=== PATIENT | male | born 1950 | race Caucasian/White ===

== ENCOUNTER 2018-09-04 08:18 | Day surgery (SDC) | payer MEDICARE, OTHER, SELFPAY ==
--- NOTE | 2018-09-04 | PATH_ITS ---
[facility] Accession Number: [id number] . 01 Material submitted: . POLYP AT 60CM . 02 Diagnosis: Colon, Polyp at 60 cm, Biopsy: Tubular adenoma. MRV/09/08/2018 . 02 Electronically signed: . Hilaria Prasad MD, Pathologist NPI- [id number] . 01 Gross description: . Received one formalin-filled container labeled with the patient's name and labeled polyp at 60 cm. The specimen consists of two 0.2-0.3 cm portions of tissue, entirely submitted in one cassette. ([id number]) /FRR . 02 Pathologist provided ICD-10: D12.6 . 02 CPT . 085852 Performed at: 01 [facility] [address] [id number] MD Bereket Carlos MD Phone: [phone] Performed at: 02 [facility] [address] [place], [place] [id number] MD Hilaria Prasad MD Phone: [phone]
[2018-09-04 08:36] VITALS: BP 155/87; PULSE 93; RESP 18; TEMP 36.9; O2SAT 97; BMI 23.6
[2018-09-04] MEDS: SODIUM CHLORIDE 0.9% 1,000 ML 200 ML IV (08:48)
--- NOTE | 2018-09-04 09:52 | P.HP_ITS ---
History of Present Illness Date Patient Seen: 09/04/18 Time Patient Seen: 09:43 Chief complaint: [id number] SCREENING COLONOSCOPY Narrative: Patient here for screening exam. Last exam 6 or 7 years ago. He had polyps removed at that time. Patient History Medical History Healthy adult male (Acute) Social History household members: spouse Family & Social History Social History: household members spouse Meds Allergies Allergy/AdvReac Type Severity Reaction Status Date / Time No Known Drug Allergies Allergy Verified 09/04/18 08:34 Review of Systems Review of Systems All systems reviewed & are unremarkable except as noted in HPI and below Exam Vital Signs (past 8 hours): - 09/04/18 08:36 Temperature 98.5 F Pulse Rate 93 H Respiratory Rate 18 Blood Pressure 155/87 H Pulse Oximetry 97 Oxygen Delivery Method Room Air Narrative Exam Narrative: No apparent distress. Lungs are clear to auscultation. Heart regular rate and rhythm without murmur gallop. Abdomen is soft nontender w ithout mass. Alert and oriented x3. Assessment & Plan Assessment & Plan narrative: Patient for screening colonoscopy. I have discussed the procedure and the rationale with the patient including risks of bleeding, perforation which would necessitate a major operation, failure to find remove all lesions and the potential to tattoo. They appeared to understand and wished to proceed.
--- NOTE | 2018-09-04 09:52 | PM.PREOP ---
Pre-operative Note Interval Note History & Physical reviewed/Exam performed by Physician: Yes Changes to H&P: No ASA Class (for procedural sedation): I
[2018-09-04] MEDS: fentaNYL 250 MCG/5 ML INJ IV (09:54)
[2018-09-04] MEDS: MIDAZOLAM 5 MG/5 ML VIAL IV (09:55)
--- NOTE | 2018-09-04 10:23 | P.OP.ENDO_ITS ---
Operative Date/Time/Diagnoses Date of procedure: 09/04/18 Time of procedure: 10:17 Pre-op diagnosis: Screening exam. Last exam 6 or 7 years ago. History of polyps. Post-op diagnosis: same (Two small polyps. Sigmoid diverticulosis) Procedure & Clinicians Study performed: Colonoscopy with cold biopsy Same procedure as scheduled: Yes Indications: Screening. History of polyps. Surgeon: Kai Pineda Procedure Notes SCOAP/Timeout: Performed Procedure in detail: The patient was placed in the left lateral decubitus position and underwent IV sedation directed by the surgeon consisting of fentanyl and Versed. Digital exam was remarkable for a somewhat narrowed anus. I applied lidocaine ointment to the area. I could not feel his prostate well.. The scope was inserted and advanced through the rectum into the sigmoid, descending, transverse, and ascending colon. I noted sigmoid diverticulosis. No other lesions were seen.. The cecum was reached identified by the ileocecal valve and the appendiceal opening. The scope was gradually brought out. Two Polyps were found at 50 and 60 cm from the anal verge. These are placed in the same container.. The scope ultimately was retroflexed in the rectum. The a ppearance was normal. The scope was removed and the patient tolerated the procedure well. The prep was excellent. Scope withdrawal time: Almost 8.5 min Sedation minutes: 23 Findings: diverticulosis (Sigmoid) and polyp (Two tiny polyps near 50 and 60 cm) Specimen(s): other (Polyps) Complications: none Recommendations: Colonscopy in 5 years Follow up: as needed Disposition: PACU
[2018-09-04 10:24] VITALS: BP 131/75; PULSE 79; RESP 13; TEMP 36.7; O2SAT 16
[2018-09-04 10:28] VITALS: BP 135/78; PULSE 88; RESP 16; O2SAT 100
[2018-09-04 10:34] VITALS: BP 149/90; PULSE 81; RESP 15; TEMP 36.8; O2SAT 99
[2018-09-04 10:46] VITALS: BP 136/76; PULSE 76; RESP 16; TEMP 37; O2SAT 97
--- NOTE | 2018-09-04 10:49 | SUR.PHASEII ---
Discharge instructions and care done by JOSS Edward. Charting done by this RN.
== END 2018-09-04 10:50 | disposition home or self-care (01) ==
PROVIDERS: Visit Provider Specialist
PROC: 0DJD8ZZ Inspection of Lower Intestinal Tract, Via Natural or Artificial Opening Endoscopic (ICD-10-PCS; CPT 45378; principal; 2018-09-04 09:45)
DX: Z86.010 Personal history of colon polyps (principal); K57.30 Diverticulosis of large intestine without perforation or abscess without bleeding; D12.6 Benign neoplasm of colon, unspecified
CPT/HCPCS: 45380; 88305; 99152; J2250; J3010

== ENCOUNTER → 2018-11-20 09:49 | Outpatient (CLI) | payer MEDICARE, OTHER, SELFPAY ==
--- NOTE | 2018-11-20 10:12 | DI.CT.S_ITS ---
PROCEDURE: CT SOFT TISSUE NECK WO CON INDICATIONS: Neck lump. TECHNIQUE: Non-contrast 3.0 mm axial sections acquired from the sella to the aortic arch. Additional oblique axial 3.0 mm sections acquired through the pharynx. 3 mm thick coronal and sagittal reformats were generated. For radiation dose reduction, the following was used: automated exposure control. COMPARISON: None. FINDINGS: Image quality: Excellent. Lymph nodes: A marker was placed at the area of clinical concern by the patient. At this site, there is an enlarged lymph node seen deep to the sternocleidomastoid muscle, as on series 2 image 33 that measures 2.5 x 2 cm in greatest axial dimension, with a craniocaudal extent of 2.2 cm. This is seen at level IIB. Additional enlarged lymph nodes are seen on both sides of the neck, with the next largest lymph node seen on the left at level IIA, as on series 7 image 14 measuring 2.6 x 1.6 cm in greatest axial dimension, with a craniocaudal extent of 1.8 cm. The largest solitary lymph node on the right is seen at level IIA on series 2 image 72 measuring 10 x 13 mm in greatest axial dimension, with a craniocaudal extent of 21 mm. Vessels: Non-opacified vessels appear normal in caliber. Neck spaces: Irregular masses are seen at the level of the tongue base and vallecula, which are more prominent on the left than on the right. The largest focal nodule measures 2.4 x 1.9 cm in greatest axial dimension, with a craniocaudal extent of at least 4 cm, as on series 2 image 33 and on series 4 image 46. There is mass effect upon the epiglottis. Glands: The parotid and submandibular glands appear normal, without stones. Thyroid gland demonstrates no significant noncontrast abnormality which is. Miscellaneous: Visualized brain and orbits appear normal. Lung apices appear clear. Superficial soft tissues appear normal. Cervical spine degenerative changes are seen, which are most prominent inferiorly. There is a mucous retention cyst seen within the right maxillary sinus. IMPRESSION: Irregular masses are seen involving the vallecula and tongue base. Numerous enlarged cervical lymph nodes are seen, which are more prominent on the left side than on the right. There is mass effect upon the epiglottis. 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 Differential diagnosis includes lymphoma, yet this is considered to be less likely. Further evaluation is recommended, with laryngoscopy (with consideration for biopsy) and a formal speech swallowing evaluation. Note: Findings and recommendations relayed to Dr. Nena Murguia via nurse Cheung at 11:51 AM [place] time on November 20, 2018. Dr. Murguia will call back if there are any questions. Dictated by: Matthew Cruz M.D. on 11/20/2018 at 10:33 Approved by: Matthew Cruz M.D. on 11/20/2018 at 10:52
[2018-11-20 11:10] LABS: Add Manual Diff / Slide Review NO; Basophils Absolute Auto 0 /uL (0-100); Basophils Percent Auto 0.5 % (0-2); Eosinophils Absolute Auto 100 /uL (0-450); Eosinophils Percent Auto 0.8 % (2-4); Hematocrit 44.6 % (41-53); Hemoglobin 14.8 g/dL (13.5-17.5); Lymphocytes Absolute Auto 2000 /uL (1100-4500); Lymphocytes Percent Auto 23.4 % (25-40); Mean Corpuscular HGB Conc 33.1 % (30-36); Mean Corpuscular Hemoglobin 30.3 PG (26-34); Mean Corpuscular Volume 91.5 fL (80-100); Monocytes Absolute Auto 800 /uL (0-900); Neutrophils Absolute Auto 5700 /uL (1500-7000); Neutrophils Percent Auto 66.3 % (50-75); Platelet Count 236 X10^3/uL (150-400); Red Blood Cell Count 4.88 X10^6/uL (4.5-5.9); White Blood Cell Count 8.5 X10^3/uL (4.5-11.0)
[2018-11-20 11:32] LABS: Alanine Aminotransferase 22 IU/L (21-72); Albumin 4.3 g/dL (3.5-5.0); Albumin Globulin Ratio 1.3 (1.0-2.8); Alkaline Phosphatase 76 U/L (38-126); Aspartate Aminotransferase 19 IU/L (17-59); BUN Creatinine Ratio 17.8 (6-22); Bilirubin Total 0.6 mg/dL (0.2-1.3); Blood Urea Nitrogen 16 mg/dL (9-20); Calcium 9.7 mg/dL (8.4-10.2); Carbon Dioxide 29 mmol/L (22-32); Chloride 103 mmol/L (98-107); Cholesterol 206 mg/dL (140-199); Estimated Glomerular Filt Rate > 60.0 mL/min (>60); Globulin 3.2 g/dL (1.7-4.1); Glucose 106 mg/dL (80-110); HDL Cholesterol 67 mg/dL (40-60); HEMOLYSIS < 15 (0-50); LDL Cholesterol Calculated 118 mg/dL (<100); Potassium 4.9 mmol/L (3.4-5.1); Sodium 139 mmol/L (137-145); Total Protein 7.5 g/dL (6.3-8.2); Triglycerides 107 mg/dL (35-150)
[2018-11-20 11:58] LABS: Thyroid Stimulating Hormone 3.12 uIU/mL (0.47-4.68)
== END ==
PROVIDERS: Visit Provider Hospitalist
DX: R22.1 Localized swelling, mass and lump, neck (principal); R03.0 Elevated blood-pressure reading, without diagnosis of hypertension
CPT/HCPCS: 36415; 70490; 80053; 80061; 84443; 85025

== ENCOUNTER → 2018-12-28 10:38 | Outpatient (CLI) | payer MEDICARE, OTHER, SELFPAY ==
--- NOTE | 2018-12-28 | DI.RAD.S_ITS ---
PROCEDURE: FL GUIDED PICC PLACEMENT INDICATIONS: Malignant neoplasm of oropharynx, unspecified COMPARISON: None. FINDINGS: PICC was placed by the intravenous therapy team from the left side. Fluoroscopic spot film demonstrates tip of PICC in the distal SVC. IMPRESSION: Tip of PICC lies within the distal SVC. Dictated by: Jitendra Elena M.D. on 12/28/2018 at 11:59 Approved by: Jitendra Elena M.D. on 12/28/2018 at 11:59
== END ==
PROVIDERS: Family Provider Hospitalist
DX: Z45.2 Encounter for adjustment and management of vascular access device (principal); C10.9 Malignant neoplasm of oropharynx, unspecified
CPT/HCPCS: 36573

== ENCOUNTER 2019-02-06 11:48 | Emergency (ER) | payer MEDICARE, OTHER, SELFPAY ==
[2019-02-06] VITALS (7 sets, daily range): BP systolic 145–172; BP diastolic 54–87; PULSE 54–64; RESP 12–16; TEMP 36.7; O2SAT 96–100
[2019-02-06] MEDS: ONDANSETRON 4 MG/2 ML INJ IV (12:16)
[2019-02-06] MEDS: SODIUM CHLORIDE 0.9% 1,000 ML 1000 ML IV ×2 (12:16→14:14)
[2019-02-06 12:19] LABS: Add Manual Diff / Slide Review NO; Basophils Absolute Auto 0 /uL (0-100); Basophils Percent Auto 0.3 % (0-2); Eosinophils Absolute Auto 0 /uL (0-450); Eosinophils Percent Auto 1.1 % (2-4); Hematocrit 35.9 % (41-53); Hemoglobin 12.2 g/dL (13.5-17.5); Lymphocytes Absolute Auto 400 /uL (1100-4500); Lymphocytes Percent Auto 10.2 % (25-40); Mean Corpuscular HGB Conc 33.9 % (30-36); Mean Corpuscular Hemoglobin 29.9 PG (26-34); Mean Corpuscular Volume 88.1 fL (80-100); Monocytes Absolute Auto 500 /uL (0-900); Monocytes Percent Auto 12.4 % (3-14); Neutrophils Absolute Auto 3300 /uL (1500-7000); Platelet Count 216 X10^3/uL (150-400); Red Blood Cell Count 4.08 X10^6/uL (4.5-5.9); Red Cell Distribution Width 12.4 % (11.6-14.8); White Blood Cell Count 4.4 X10^3/uL (4.5-11.0)
--- NOTE | 2019-02-06 12:21 | ED.NAVMDI ---
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 He had chemo and radiation this week. He says that he is vomited under 10 times over the last few days but is unable to keep anything down. He states that he is not nauseous that he only vomits. He also does a lot of kids coughing with spitting. He has also had multiple episodes of nonbloody diarrhea. He denies any pain. MD complaint: vomiting and diarrhea Description of Diarrhea: watery Associated Abdominal Pain: No Related Data Home Medications Medication Instructions Recorded Confirmed vit C,W-Qo-ofhas-lutein-zeaxan 1 mg DAILY 12/30/18 02/06/19 [PreserVision AREDS-2] Previous Rx's Medication Instructions Recorded ondansetron 8 mg PO Q8H PRN #30 tab 12/30/18 prochlorperazine maleate 10 mg PO Q6H PRN #30 tab 12/30/18 [Compazine] hydroxyzine pamoate [Vistaril] 50 mg PO Q6H PRN #14 cap 02/06/19 hydroxyzine pamoate [Vistaril] 50 mg PO Q6H PRN #14 cap 02/06/19 Allergies Allergy/AdvReac Type Severity Reaction Status Date / Time No Known Drug Allergies Allergy Verified 02/06/19 12:08 Review of Systems Review of Systems GENERAL: Denies chills, fatigue, malaise, fever, sweats, travel HEENT: Denies sinus pain, ear pain, sore throat, difficulty swallowing, neck pain RESPIRATORY: Denies dyspnea, cough, wheezing, hemoptysis, sputum. CARDIOVASCULAR: Denies chest pain, palpitations, orthopnea, edema GASTROINTESTINAL: See HPI : Denies dysuria, frequency, incontinence, hematuria, urinary retention, flank pain. MUSCULOSKELETAL: Denies weakness, joint pain, or bony pain SKIN: No rash, no erythema, no pruritus NEUROLOGIC: Denies weakness, dizziness, headache, numbness, change in speech, confusion PSYCHIATRIC: No concerning psychosocial issues. 12 point review of systems is negative except for those stated above and HPI [facility] Medical History Squamous cell carcinoma of oropharynx (Acute) Healthy adult male (Acute) Social History household members: spouse Smoking Status: Former smoker Social History household members: spouse Smoking Status: Former smoker Exam Initial Vital Signs Initial Vital Signs: Vital Signs Temperature 98.0 F 02/06/19 11:50 Pulse Rate 64 02/06/19 11:50 Respiratory Rate 12 02/06/19 11:50 Blood Pressure 145/70 H 02/06/19 11:50 Pulse Oximetry 98 02/06/19 11:50 GENERAL: Well-appearing, well-nourished and in no acute distress. HEENT: Head atraumatic,EOMI, pupils reactive, CARDIOVASCULAR: Regular rate and rhythm without murmurs, rubs or gallops. RESPIRATORY: Breath sounds equal bilaterally, no wheezes rales or rhonchi. ABDOMEN: Soft, nontender. Normoactive bowel sounds all 4 quadrants. No guarding or rebound. EXTREMITIES: Normal range of motion, no clubbing or edema. Neurovascularly intact. PICC line placed in left arm NEUROLOGICAL: Alert and oriented x4.Normal gait and speech. Cranial nerves II through XII grossly intact. SKIN: Warm, dry, no laceration, no petechiae, no rashes or lesions. Course Orders Ordered: ED Orders 02/06/19 12:00 Complete Blood Count AUTO DIFF Stat Comprehensive Metabolic Panel Stat Lactate (Lactic Acid) Stat Lipase Stat Partial Thromboplastin Time Stat Prothrombin Time INR Stat 02/06/19 13:25 Urine Culture Stat Urine Microscopic Stat Discontinued Medications Hydroxyzine HCl (Vistaril) 50 mg IM NOW ONE Stop: 02/06/19 15:17 Last Admin: 02/06/19 15:30 Dose: 50 mg Sodium Chloride (Normal Saline 0.9%) 1,000 mls @ 1,000 mls/hr IV BOLUS ONE Stop: 02/06/19 13:03 Last Infusion: 02/06/19 13:22 Dose: 0 mls/hr Admin: 02/06/19 12:16 Dose: 1,000 mls/hr Sodium Chloride (Normal Saline 0.9%) 1,000 mls @ 1,000 mls/hr IV BOLUS ONE Stop: 02/06/19 14:55 Last Infusion: 02/06/19 16:46 Dose: 0 mls/hr Admin: 02/06/19 14:14 Dose: 1,000 mls/hr Ondansetron HCl (Zofran) 4 mg IV NOW ONE Stop: 02/06/19 12:04 Last Admin: 02/06/19 12:16 Dose: 4 mg Prochlorperazine (Compazine) 10 mg IV NOW ONE Stop: 02/06/19 13:57 Last Admin: 02/06/19 14:15 Dose: 10 mg Vital Signs - 8 hr 02/06/19 11:50 02/06/19 12:11 02/06/19 13:30 Temperature 98.0 F Pulse Rate 64 63 54 L Respiratory Rate 12 14 15 Blood Pressure 145/70 H Blood Pressure [Right Arm] 152/87 H 163/67 H Pulse Oximetry 98 98 100 02/06/19 14:15 02/06/19 15:10 02/06/19 16:00 Temperature Pulse Rate 63 56 L 60 Respiratory Rate Blood Pressure 168/54 H Blood Pressure [Right Arm] 154/73 H 172/62 H Pulse Oximetry 99 98 02/06/19 17:20 Temperature Pulse Rate 63 Respiratory Rate 16 Blood Pressure Blood Pressure [Right Arm] 170/59 H Pulse Oximetry 96 MDM - Nausea/Vomiting/Diarrhea Lab Data Attestation: I reviewed the patient's lab results. Result diagrams: 02/06/19 12:00 02/06/19 12:00 Lab Results 02/06/19 02/06/19 02/06/19 Range/Units 12:00 12:00 12:00 WBC 4.4 L (4.5-11.0) X10^3/uL RBC 4.08 L (4.5-5.9) X10^6/uL Hgb 12.2 L (13.5-17.5) g/dL Hct 35.9 L (41-53) % MCV 88.1 (80-100) fL MCH 29.9 (26-34) PG MCHC 33.9 (30-36) % RDW 12.4 (11.6-14.8) % Plt Count 216 (150-400) X10^3/uL Neut % (Auto) 76.0 H (50-75) % Lymph % (Auto) 10.2 L (25-40) % Hughes % (Auto) 12.4 (3-14) % Eos % (Auto) 1.1 L (2-4) % Baso % (Auto) 0.3 (0-2) % Neut # (Auto) 3300 (9644-6448) /uL Lymph # (Auto) 400 L (7698-3993) /uL Hughes # (Auto) 500 (0-900) /uL Eos # (Auto) 0 (0-450) /uL Baso # (Auto) 0 (0-100) /uL PT 10.8 (10.1-12.7) SECONDS INR 0.9 (0.9-1.3) APTT 28 (26.4-36.2) SECONDS Sodium 133 L (137-145) mmol/L Potassium 3.1 L (3.4-5.1) mmol/L Chloride 91 L (98-107) mmol/L Carbon Dioxide 32 (22-32) mmol/L BUN 23 H (9-20) mg/dL Creatinine 1.20 (0.66-1.25) mg/dL Estimated GFR > 60.0 (>60) mL/min BUN/Creatinine Ratio 19.2 (6-22) Glucose 127 H (80-110) mg/dL Lactate (0.7-2.1) mmol/L Calcium 8.4 (8.4-10.2) mg/dL Total Bilirubin 0.5 (0.2-1.3) mg/dL AST 64 H (17-59) IU/L ALT 100 H (21-72) IU/L Alkaline Phosphatase 59 (38-126) U/L Total Protein 7.4 (6.3-8.2) g/dL Albumin 4.1 (3.5-5.0) g/dL Globulin 3.3 (1.7-4.1) g/dL Albumin/Globulin Ratio 1.2 (1.0-2.8) Lipase 226 (23-300) U/L Urine RBC (0-5/HPF) Urine WBC (0-5/HPF) Ur Squamous Epith Cells (0-5/HPF) Urine Bacteria (None) Ur Culture Indicated? 02/06/19 02/06/19 Range/Units 12:00 13:25 WBC (4.5-11.0) X10^3/uL RBC (4.5-5.9) X10^6/uL Hgb (13.5-17.5) g/dL Hct (41-53) % MCV (80-100) fL MCH (26-34) PG MCHC (30-36) % RDW (11.6-14.8) % Plt Count (150-400) X10^3/uL Neut % (Auto) (50-75) % Lymph % (Auto) (25-40) % Hughes % (Auto) (3-14) % Eos % (Auto) (2-4) % Baso % (Auto) (0-2) % Neut # (Auto) (8047-0043) /uL Lymph # (Auto) (0784-3862) /uL Hughes # (Auto) (0-900) /uL Eos # (Auto) (0-450) /uL Baso # (Auto) (0-100) /uL PT (10.1-12.7) SECONDS INR (0.9-1.3) APTT (26.4-36.2) SECONDS Sodium (137-145) mmol/L Potassium (3.4-5.1) mmol/L Chloride (98-107) mmol/L Carbon Dioxide (22-32) mmol/L BUN (9-20) mg/dL Creatinine (0.66-1.25) mg/dL Estimated GFR (>60) mL/min BUN/Creatinine Ratio (6-22) Glucose (80-110) mg/dL Lactate 0.8 (0.7-2.1) mmol/L Calcium (8.4-10.2) mg/dL Total Bilirubin (0.2-1.3) mg/dL AST (17-59) IU/L ALT (21-72) IU/L Alkaline Phosphatase (38-126) U/L Total Protein (6.3-8.2) g/dL Albumin (3.5-5.0) g/dL Globulin (1.7-4.1) g/dL Albumin/Globulin Ratio (1.0-2.8) Lipase (23-300) U/L Urine RBC 1-5/hpf (0-5/HPF) Urine WBC 5-10/hpf H (0-5/HPF) Ur Squamous Epith Cells 1-5 /hpf (0-5/HPF) Urine Bacteria Few (2-10) H (None) Ur Culture Indicated? Specimen cultured Urine Dip Bedside Urine Glucose Negative Bedside Urine Bilirubin - Negative Bedside Urine Ketone ++ 40 Urine Specific [place] 1.015 Bedside Urine Occult Blood - Negative Bedside Urine pH 6.0 Bedside Urine Protein + 30 Bedside Urine Urobilinogen +/- 1mg Bedside Urine Nitrite - Negative Bedside Urine Leukocytes - Negative Esterase MDM Narrative Medical decision making narrative: Patient vomited after Zofran and Compazine both. He was finally given a dose of IM Vistaril he kept water down. He overall is feeling much better and would like to go home. He did receive 2 L of IV fluids. He is able to keep some water down at home he even can take some Ensure at times. But his taste is significantly off any states everything tastes like metal. Discharge Plan Departure Patient Disposition: Home Clinical Impression: Nausea & vomiting Qualifiers: Vomiting type: unspecified Vomiting Intractability: non-intractable Qualified Code(s): R11.2 - Nausea with vomiting, unspecified Discharge Date/Time: 02/06/19 17:22 Interventions: ED Discharge Assessment Last Done: 02/06/19 17:22 Instructions: DI for Vomiting -- Adult Activity Restrictions/Additional Instructions: 1) You have been diagnosed with vomiting and diarrhea 2) What to do: Drink frequent but small amounts of fluids. I recommend Gatorade or a Gatorade-like product, as it has small amounts of sugar and salts that improve fluid retention. 3) Take medications as directed Vistaril 25 -50mg every 6 hours if needed for nausea or vomiting 4) Follow up with your primary care provider in 2-3 days 5) Return to ER if you should have any new or worsening symptoms such as, unable to hold down fluids despite use of anti-nausea medications and the small volume oral rehydration strategy. Prescriptions: New hydroxyzine pamoate [Vistaril] 25 mg capsule 50 mg PO Q6H PRN (Reason: nausea and vomiting) Qty: 14 RF: 0 hydroxyzine pamoate [Vistaril] 25 mg capsule 50 mg PO Q6H PRN (Reason: nausea and vomiting) Qty: 14 RF: 0 No Action PreserVision AREDS-2 [id number] Capsule 1 mg DAILY RF: 0 ondansetron 8 mg Tablet,Disintegrating 8 mg PO Q8H PRN (Reason: Nausea) Qty: 30 RF: 2 prochlorperazine maleate [Compazine] 10 mg Tablet 10 mg PO Q6H PRN (Reason: Nausea) Qty: 30 RF: 2 Referrals: Lashon Murguia MD [Primary Care Provider] -
[2019-02-06 12:26] LABS: INR 0.9 (0.9-1.3); Prothrombin Time 10.8 SECONDS (10.1-12.7)
--- NOTE | 2019-02-06 12:26 | ED_ITS ---
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 He had chemo and radiation this week. He says that he is vomited under 10 times over the last few days but is unable to keep anything down. He states that he is not nauseous that he only vomits. He also does a lot of kids coughing with spitting. He has also had multiple episodes of nonbloody diarrhea. He denies any pain. MD complaint: vomiting and diarrhea Description of Diarrhea: watery Associated Abdominal Pain: No Related Data Home Medications Medication Instructions Recorded Confirmed vit C,X-Ni-derdx-lutein-zeaxan 1 mg DAILY 12/30/18 02/06/19 [PreserVision AREDS-2] Previous Rx's Medication Instructions Recorded ondansetron 8 mg PO Q8H PRN #30 tab 12/30/18 prochlorperazine maleate 10 mg PO Q6H PRN #30 tab 12/30/18 [Compazine] hydroxyzine pamoate [Vistaril] 50 mg PO Q6H PRN #14 cap 02/06/19 hydroxyzine pamoate [Vistaril] 50 mg PO Q6H PRN #14 cap 02/06/19 Allergies Allergy/AdvReac Type Severity Reaction Status Date / Time No Known Drug Allergies Allergy Verified 02/06/19 12:08 Review of Systems Review of Systems GENERAL: Denies chills, fatigue, malaise, fever, sweats, travel HEENT: Denies sinus pain, ear pain, sore throat, difficulty swallowing, neck pain RESPIRATORY: Denies dyspnea, cough, wheezing, hemoptysis, sputum. CARDIOVASCULAR: Denies chest pain, palpitations, orthopnea, edema GASTROINTESTINAL: See HPI : Denies dysuria, frequency, incontinence, hematuria, urinary retention, flank pain. MUSCULOSKELETAL: Denies weakness, joint pain, or bony pain SKIN: No rash, no erythema, no pruritus NEUROLOGIC: Denies weakness, dizziness, headache, numbness, change in speech, confusion PSYCHIATRIC: No concerning psychosocial issues. 12 point review of systems is negative except for those stated above and HPI [facility] Medical History Squamous cell carcinoma of oropharynx (Acute) Healthy adult male (Acute) Social History household members: spouse Smoking Status: Former smoker Social History household members: spouse Smoking Status: Former smoker Exam Initial Vital Signs Initial Vital Signs: Vital Signs Temperature 98.0 F 02/06/19 11:50 Pulse Rate 64 02/06/19 11:50 Respiratory Rate 12 02/06/19 11:50 Blood Pressure 145/70 H 02/06/19 11:50 Pulse Oximetry 98 02/06/19 11:50 GENERAL: Well-appearing, well-nourished and in no acute distress. HEENT: Head atraumatic,EOMI, pupils reactive, CARDIOVASCULAR: Regular rate and rhythm without murmurs, rubs or gallops. RESPIRATORY: Breath sounds equal bilaterally, no wheezes rales or rhonchi. ABDOMEN: Soft, nontender. Normoactive bowel sounds all 4 quadrants. No guard ing or rebound. EXTREMITIES: Normal range of motion, no clubbing or edema. Neurovascularly intact. PICC line placed in left arm NEUROLOGICAL: Alert and oriented x4.Normal gait and speech. Cranial nerves II through XII grossly intact. SKIN: Warm, dry, no laceration, no petechiae, no rashes or lesions. Course Orders Ordered: ED Orders 02/06/19 12:00 Complete Blood Count AUTO DIFF Stat Comprehensive Metabolic Panel Stat Lactate (Lactic Acid) Stat Lipase Stat Partial Thromboplastin Time Stat Prothrombin Time INR Stat 02/06/19 13:25 Urine Culture Stat Urine Microscopic Stat Discontinued Medications Hydroxyzine HCl (Vistaril) 50 mg IM NOW ONE Stop: 02/06/19 15:17 Last Admin: 02/06/19 15:30 Dose: 50 mg Sodium Chloride (Normal Saline 0.9%) 1,000 mls @ 1,000 mls/hr IV BOLUS ONE Stop: 02/06/19 13:03 Last Infusion: 02/06/19 13:22 Dose: 0 mls/hr Admin: 02/06/19 12:16 Dose: 1,000 mls/hr Sodium Chloride (Normal Saline 0.9%) 1,000 mls @ 1,000 mls/hr IV BOLUS ONE Stop: 02/06/19 14:55 Last Infusion: 02/06/19 16:46 Dose: 0 mls/hr Admin: 02/06/19 14:14 Dose: 1,000 mls/hr Ondansetron HCl (Zofran) 4 mg IV NOW ONE Stop: 02/06/19 12:04 Last Admin: 02/06/19 12:16 Dose: 4 mg Prochlorperazine (Compazine) 10 mg IV NOW ONE Stop: 02/06/19 13:57 Last Admin: 02/06/19 14:15 Dose: 10 mg Vital Signs - 8 hr 02/06/19 11:50 02/06/19 12:11 02/06/19 13:30 Temperature 98.0 F Pulse Rate 64 63 54 L Respiratory Rate 12 14 15 Blood Pressure 145/70 H Blood Pressure [Right Arm] 152/87 H 163/67 H Pulse Oximetry 98 98 100 02/06/19 14:15 02/06/19 15:10 02/06/19 16:00 Temperature Pulse Rate 63 56 L 60 Respiratory Rate Blood Pressure 168/54 H Blood Pressure [Right Arm] 154/73 H 172/62 H Pulse Oximetry 99 98 02/06/19 17:20 Temperature Pulse Rate 63 Respiratory Rate 16 Blood Pressure Blood Pressure [Right Arm] 170/59 H Pulse Oximetry 96 MDM - Nausea/Vomiting/Diarrhea Lab Data Attestation: I reviewed the patient's lab results. Result diagrams: 02/06/19 12:00 02/06/19 12:00 Lab Results 02/06/19 02/06/19 02/06/19 Range/Units 12:00 12:00 12:00 WBC 4.4 L (4.5-11.0) X10^3/uL RBC 4.08 L (4.5-5.9) X10^6/uL Hgb 12.2 L (13.5-17.5) g/dL Hct 35.9 L (41-53) % MCV 88.1 (80-100) fL MCH 29.9 (26-34) PG MCHC 33.9 (30-36) % RDW 12.4 (11.6-14.8) % Plt Count 216 (150-400) X10^3/uL Neut % (Auto) 76.0 H (50-75) % Lymph % (Auto) 10.2 L (25-40) % [place] % (Auto) 12.4 (3-14) % Eos % (Auto) 1.1 L (2-4) % Baso % (Auto) 0.3 (0-2) % Neut # (Auto) 3300 (5033-6928) /uL Lymph # (Auto) 400 L (7244-8759) /uL [place] # (Auto) 500 (0-900) /uL Eos # (Auto) 0 (0-450) /uL Baso # (Auto) 0 (0-100) /uL PT 10.8 (10.1-12.7) SECONDS INR 0.9 (0.9-1.3) APTT 28 (26.4-36.2) SECONDS Sodium 133 L (137-145) mmol/L Potassium 3.1 L (3.4-5.1) mmol/L Chloride 91 L (98-107) mmol/L Carbon Dioxide 32 (22-32) mmol/L BUN 23 H (9-20) mg/dL Creatinine 1.20 (0.66-1.25) mg/dL Estimated GFR > 60.0 (>60) mL/min BUN/Creatinine Ratio 19.2 (6-22) Glucose 127 H (80-110) mg/dL Lactate (0.7-2.1) mmol/L Calcium 8.4 (8.4-10.2) mg/dL Total Bilirubin 0.5 (0.2-1.3) mg/dL AST 64 H (17-59) IU/L ALT 100 H (21-72) IU/L Alkaline Phosphatase 59 (38-126) U/L Total Protein 7.4 (6.3-8.2) g/dL Albumin 4.1 (3.5-5.0) g/dL Globulin 3.3 (1.7-4.1) g/dL Albumin/Globulin Ratio 1.2 (1.0-2.8) Lipase 226 (23-300) U/L Urine RBC (0-5/HPF) Urine WBC (0-5/HPF) Ur Squamous Epith Cells (0-5/HPF) Urine Bacteria (None) Ur Culture Indicated? 02/06/19 02/06/19 Range/Units 12:00 13:25 WBC (4.5-11.0) X10^3/uL RBC (4.5-5.9) X10^6/uL Hgb (13.5-17.5) g/dL Hct (41-53) % MCV (80-100) fL MCH (26-34) PG MCHC (30-36) % RDW (11.6-14.8) % Plt Count (150-400) X10^3/uL Neut % (Auto) (50-75) % Lymph % (Auto) (25-40) % [place] % (Auto) (3-14) % Eos % (Auto) (2-4) % Baso % (Auto) (0-2) % Neut # (Auto) (4588-5159) /uL Lymph # (Auto) (6713-1894) /uL [place] # (Auto) (0-900) /uL Eos # (Auto) (0-450) /uL Baso # (Auto) (0-100) /uL PT (10.1-12.7) SECONDS INR (0.9-1.3) APTT (26.4-36.2) SECONDS Sodium (137-145) mmol/L Potassium (3.4-5.1) mmol/L Chloride (98-107) mmol/L Carbon Dioxide (22-32) mmol/L BUN (9-20) mg/dL Creatinine (0.66-1.25) mg/dL Estimated GFR (>60) mL/min BUN/Creatinine Ratio (6-22) Glucose (80-110) mg/dL Lactate 0.8 (0.7-2.1) mmol/L Calcium (8.4-10.2) mg/dL Total Bilirubin (0.2-1.3) mg/dL AST (17-59) IU/L ALT (21-72) IU/L Alkaline Phosphatase (38-126) U/L Total Protein (6.3-8.2) g/dL Albumin (3.5-5.0) g/dL Globulin (1.7-4.1) g/dL Albumin/Globulin Ratio (1.0-2.8) Lipase (23-300) U/L Urine RBC 1-5/hpf (0-5/HPF) Urine WBC 5-10/hpf H (0-5/HPF) Ur Squamous Epith Cells 1-5 /hpf (0-5/HPF) Urine Bacteria Few (2-10) H (None) Ur Culture Indicated? Specimen cultured Urine Dip Bedside Urine Glucose Negative Bedside Urine Bilirubin - Negative Bedside Urine Ketone ++ 40 Urine Specific [place] 1.015 Bedside Urine Occult Blood - Negative Bedside Urine pH 6.0 Bedside Urine Protein + 30 Bedside Urine Urobilinogen +/- 1mg Bedside Urine Nitrite - Negative Bedside Urine Leukocytes - Negative Esterase MDM Narrative Medical decision making narrative: Patient vomited after Zofran and Compazine both. He was finally given a dose of IM Vistaril he kept water down. He overall is feeling much better and would like to go home. He did receive 2 L of IV fluids. He is able to keep some water down at home he even can take some Ensure at times. But his taste is significantly off any states everything tastes like metal. Discharge Plan Departure Patient Disposition: Home Clinical Impression: Nausea & vomiting Qualifiers: Vomiting type: unspecified Vomiting Intractability: non-intractable Qualified Code(s): R11.2 - Nausea with vomiting, unspecified Discharge Date/Time: 02/06/19 17:22 Interventions: ED Discharge Assessment Last Done: 02/06/19 17:22 Instructions: DI for Vomiting -- Adult Activity Restrictions/Additional Instructions: 1) You have been diagnosed with vomiting and diarrhea 2) What to do: Drink frequent but small amounts of fluids. I recommend Gatorade or a Gatorade-like product, as it has small amounts of sugar and salts that improve fluid retention. 3) Take medications as directed Vistaril 25 -50mg every 6 hours if needed for nausea or vomiting 4) Follow up with your primary care provider in 2-3 days 5) Return to ER if you should have any new or worsening symptoms such as, unable to hold down fluids despite use of anti-nausea medications and the small volume oral rehydration strategy. Prescriptions: New hydroxyzine pamoate [Vistaril] 25 mg capsule 50 mg PO Q6H PRN (Reason: nausea and vomiting) Qty: 14 RF: 0 hydroxyzine pamoate [Vistaril] 25 mg capsule 50 mg PO Q6H PRN (Reason: nausea and vomiting) Qty: 14 RF: 0 No Action PreserVision AREDS-2 [id number]-mg Capsule 1 mg DAILY RF: 0 ondansetron 8 mg Tablet,Disintegrating 8 mg PO Q8H PRN (Reason: Nausea) Qty: 30 RF: 2 prochlorperazine maleate [Compazine] 10 mg Tablet 10 mg PO Q6H PRN (Reason: Nausea) Qty: 30 RF: 2 Referrals: Lashon Murguia MD [Primary Care Provider] -
[2019-02-06 12:29] LABS: PTT Partial Thromboplastin Tim 28 SECONDS (26.4-36.2)
[2019-02-06 12:30] LABS: Lactate (Lactic Acid) 0.8 mmol/L (0.7-2.1)
[2019-02-06 12:31] LABS: Alanine Aminotransferase 100 IU/L (21-72); Albumin 4.1 g/dL (3.5-5.0); Albumin Globulin Ratio 1.2 (1.0-2.8); Alkaline Phosphatase 59 U/L (38-126); Aspartate Aminotransferase 64 IU/L (17-59); BUN Creatinine Ratio 19.2 (6-22); Bilirubin Total 0.5 mg/dL (0.2-1.3); Blood Urea Nitrogen 23 mg/dL (9-20); Calcium 8.4 mg/dL (8.4-10.2); Carbon Dioxide 32 mmol/L (22-32); Chloride 91 mmol/L (98-107); Estimated Glomerular Filt Rate > 60.0 mL/min (>60); Globulin 3.3 g/dL (1.7-4.1); Glucose 127 mg/dL (80-110); HEMOLYSIS < 15 (0-50); Lipase 226 U/L (23-300); Potassium 3.1 mmol/L (3.4-5.1); Sodium 133 mmol/L (137-145); Total Protein 7.4 g/dL (6.3-8.2)
[2019-02-06 13:54] LABS: Bacteria Urine Few (2-10); RBC Urine 1-5/HPF (0-5/HPF); Squamous Epithelial Cell Urine 1-5 /HPF (0-5/HPF); WBC Urine 5-10/HPF (0-5/HPF)
[2019-02-06 13:55] LABS: Culture Indicated Urine Specimen Cultured
[2019-02-06] MEDS: PROCHLORPERAZINE 10 MG/2 ML VIAL IV (14:15)
--- NOTE | 2019-02-06 15:28 | PC.NURSE ---
pt failed po trial twice. Dr. Bakrer aware. vomitted each time.
[2019-02-06] MEDS: hydrOXYzine 50 MG/ML INJ IM (15:30)
== END 2019-02-06 17:22 | disposition home or self-care (01) ==
PROVIDERS: Emergency Provider Emergency Medicine; PCP Internal Medicine
DX: R11.2 Nausea with vomiting, unspecified (principal); C10.9 Malignant neoplasm of oropharynx, unspecified; Z92.21 Personal history of antineoplastic chemotherapy
CPT/HCPCS: 36415; 80053; 81003; 81015; 83605; 83690; 85025; 85610; 85730; 87086; 96361; 96372; 96374; 96375; 99283; 99284; J0780; J2405; J3410

== ENCOUNTER → 2019-02-18 10:24 | Outpatient (CLI) | payer MEDICARE, OTHER, SELFPAY ==
--- NOTE | 2019-02-18 10:27 | DI.CT.S_ITS ---
PROCEDURE: CT ABDOMEN PELVIS W CON INDICATIONS: abd pain, obstruction? TECHNIQUE: After the administration of oral and intravenous contrast, 5 mm thick sections acquired from the diaphragms to the symphysis. 5 mm thick coronal and sagittal reformats were performed. For radiation dose reduction, the following was used: automated exposure control, adjustment of mA and/or kV according to patient size. COMPARISON: None. FINDINGS: Image quality: Excellent. ABDOMEN: Lung bases: Lung bases are clear. Heart size is normal. Solid organs: Liver is normal in size and enhancement. Gallbladder is unremarkable. Biliary system is non-dilated. Pancreas enhances normally. Spleen is normal in size and enhancement. No adrenal nodules. Kidneys are normal in size and enhancement, without hydronephrosis. Peritoneum and bowel: Contrast has been instilled through a gastrostomy tube. There is a large fecal impaction. There is either or focal wall thickening versus nondistended bowel involving the tip of the cecum. Nodes and vessels: No retroperitoneal or mesenteric adenopathy. Aorta and inferior vena cava are normal in caliber. Miscellaneous: No ventral hernias. PELVIS: Genitourinary: Bladder wall thickness is normal. Miscellaneous: No inguinal hernias or adenopathy. Bones: No suspicious bony lesions. No vertebral body compression fractures. IMPRESSION: 1. Large fecal impaction. 2. Question of cecal mass versus nondistended cecum. Comment: The patient has not had recent colonoscopy, direct visualization of the tip of the cecum is suggested if possible. Dictated by: Antoine Quinn M.D. on 02/18/2019 at 11:45 Approved by: Antoine Quinn M.D. on 02/18/2019 at 11:52
== END ==
PROVIDERS: PCP Internal Medicine; Visit Provider Internal Medicine Hematology & Oncology
DX: C10.9 Malignant neoplasm of oropharynx, unspecified (principal); R10.9 Unspecified abdominal pain
CPT/HCPCS: 74177; Q9967

== ENCOUNTER 2019-02-18 12:21 | Emergency (ER) | payer MEDICARE, OTHER, SELFPAY ==
[2019-02-18 12:38] VITALS: BP 172/74; PULSE 73; RESP 18; TEMP 37.6; O2SAT 100
--- NOTE | 2019-02-18 13:04 | ED.ABDPAIN ---
HPI - Abdominal Pain General Chief Complaint: Abdominal Pain Stated Complaint: LARGE IMPACTION ON CT Time Seen by Provider: 02/18/19 12:44 Source: patient Mode of arrival: ambulatory Limitations: no limitations History of Present Illness HPI narrative: 68-year-old male here sent over by his oncology clinic for findings that or reported on a abdominal CT scan. The CT scan was ordered by another provider. Was done as an outpatient. It showed a very large stool burden with potential cecal mass. He was sent over for evaluation by the oncologist. His last dose of chemotherapy was 2 weeks ago. He is still currently undergoing radiation. Upon my evaluation patient states that he has not had a bowel movement in ?a couple? weeks. He has been doing laxatives and stool softeners at home. He does feel like there is quite a bit of stool down in the rectum. No vomiting. He states he has not been eating all that much in recently had a PEG tube placed. Related Data Home Medications Medication Instructions Recorded Confirmed vit C,E-Ph-kffhn-lutein-zeaxan 1 cap PO DAILY 12/30/18 02/18/19 [PreserVision AREDS-2] Previous Rx's Medication Instructions Recorded ondansetron 8 mg PO Q8H PRN #30 tab 12/30/18 prochlorperazine maleate 10 mg PO Q6H PRN #30 tab 12/30/18 [Compazine] hydroxyzine pamoate [Vistaril] 50 mg PO Q6H PRN #14 cap 02/06/19 Allergies Allergy/AdvReac Type Severity Reaction Status Date / Time No Known Drug Allergies Allergy Verified 02/06/19 12:08 Review of Systems Constitutional Denies fever(s) and Denies headache(s) ENT Ears, Nose, Mouth, and Throat: Denies vertigo and Denies headache(s) Cardiovascular Denies chest pain and Denies dyspnea Respiratory Denies dyspnea Gastrointestinal Gastrointestinal: Reports abdominal pain, Reports constipation, Denies nausea and Denies vomiting Genitourinary Denies dysuria Musculoskeletal Denies myalgias and Denies arthralgias Integumentary/Breasts Denies rash Neurologic Denies vertigo and Denies headache(s) Hematologic/Lymphatic Denies easy bleeding and Denies easy bruising PFSH Medical History Squamous cell carcinoma of oropharynx (Acute) Healthy adult male (Acute) Social History household members: spouse Smoking Status: Former smoker Exam Initial Vital Signs Initial Vital Signs: Vital Signs Temperature 99.6 F 02/18/19 12:38 Pulse Rate 73 02/18/19 12:38 Respiratory Rate 18 02/18/19 12:38 Blood Pressure 172/74 H 02/18/19 12:38 Pulse Oximetry 100 02/18/19 12:38 Const General: cooperative, well developed and well groomed Orientation: alert, awake and oriented x3 Resp Effort & Inspection: normal respiratory effort Auscultation: clear to auscultation bilaterally Cardio Rate: regular rate Rhythm: regular rhythm GI Inspection: non-distended Palpation: soft Rectal Exam: normal sphincter tone Other: Patient with stool in the rectal vault however is very high in unable to be manually disimpacted Skin Lesions: no lesions Rashes: no rashes Neuro General: alert and awake Cognition: normal cognition Speech: speech normal Motor: muscle tone normal throughout Extrem General: normal to inspection and capillary refill normal Psych Appearance: grossly normal and well kempt Procedures Rectal Disimpaction Time out performed rectal disimpaction: Yes Indication: fecal impaction Procedural Sedation: No Sedation/Analgesia: none Technique: manual disimpaction with gloved finger Result: unable to disimpact Patient Tolerated Procedure: Well Complications: pain Course Orders Ordered: Discontinued Medications Lidocaine HCl (Urojet) 5 ml TOP NOW ONE Stop: 02/18/19 13:14 Last Admin: 02/18/19 13:48 Dose: 5 ml Vital Signs - 8 hr 02/18/19 12:38 02/18/19 16:53 Temperature 99.6 F Pulse Rate 73 66 Respiratory Rate 18 12 Blood Pressure 172/74 H 168/70 H Pulse Oximetry 100 99 MDM - Abdominal Pain Imaging Data CT scan - abdomen: Radiologist's impression: [address] [address] [address] Scan Report Signed Patient: Renato Dennis BMR#: [id number] : 3Acct:[id number] Age/Sex: 68 / MDate of Service: 02/18/19 Loc: CT Accession Number: [id number] Procedure: CT abdomen pelvis w con Ordering Provider: Fina Holley MD PROCEDURE: CT ABDOMEN PELVIS W CON INDICATIONS: abd pain, obstruction? TECHNIQUE: After the administration of oral and intravenous contrast, 5 mm thick sections acquired from the diaphragms to the symphysis. 5 mm thick coronal and sagittal reformats were performed. For radiation dose reduction, the following was used: automated exposure control, adjustment of mA and/or kV according to patient size. COMPARISON: None. FINDINGS: Image quality: Excellent. ABDOMEN: Lung bases: Lung bases are clear. Heart size is normal. Solid organs: Liver is normal in size and enhancement. Gallbladder is unremarkable. Biliary system is non-dilated. Pancreas enhances normally. Spleen is normal in size and enhancement. No adrenal nodules. Kidneys are normal in size and enhancement, without hydronephrosis. Peritoneum and bowel: Contrast has been instilled through a gastrostomy tube. There is a large fecal impaction. There is either or focal wall thickening versus nondistended bowel involving the tip of the cecum. Nodes and vessels: No retroperitoneal or mesenteric adenopathy. Aorta and inferior vena cava are normal in caliber. Miscellaneous: No ventral hernias. PELVIS: Genitourinary: Bladder wall thickness is normal. Miscellaneous: No inguinal hernias or adenopathy. Bones: No suspicious bony lesions. No vertebral body compression fractures. IMPRESSION: 1. Large fecal impaction. 2. Question of cecal mass versus nondistended cecum. Comment: The patient has not had recent colonoscopy, direct visualization of the tip of the cecum is suggested if possible. Dictated by: Antoine Quinn M.D. on 02/18/2019 at 11:45 Approved by: Antoine Quinn M.D. on 02/18/2019 at 11:52 [facility] Narrative Medical decision making narrative: The CT scan that is included in this note is for reference purposes only. It was the CT scan that was ordered as an outpatient which prompted his visit here to the emergency department. The patient did receive chemotherapy last 2 weeks ago. He did have labs drawn 3 days ago which does not show neutropenia. I did discuss the case with Dr. Holley who is the oncologist who sent the patient here. He felt that given his labs a couple days ago and his presentation today that an enema and rectal disimpaction would be okay despite the risk for bacteremia. Patient was here for several hours. We were able to manually remove a small amount of stool. He was have an encoreparesis. I did not repeat any CT scans here in the emergency department. Patient was able to get a small amount of stool out afterwards. Were unable to reach any more of the stool with a gloved finger. Will send home with MiraLax which he states he already has which he bought today. We did discuss glycerin suppositories. We did discussed enemas at home. We discussed return precautions to include fevers and worsening pain and vomiting. Patient expressed understanding and agreement this plan. Discharge Plan Departure Patient Disposition: Home Clinical Impression: Constipation Qualifiers: Constipation type: unspecified constipation type Qualified Code(s): K59.00 - Constipation, unspecified Discharge Date/Time: 02/18/19 16:53 Interventions: ED Discharge Assessment Last Done: 02/18/19 16:53 Instructions: Coping With Constipation Related to Chemotherapy, Constipation (Alternative Therapy) Activity Restrictions/Additional Instructions: Recommend you start taking MiraLax like we discussed. You could also use glycerin suppositories which you can purchase [id number]. You can also by [employer]'s enemas [id number]. Like we discuss the glycerin suppositories and enemas are most useful when there is stool down in the rectum. If you start develop vomiting or fevers or worsening abdominal pain please return to the emergency department for further evaluation. Contact your primary provider and also your oncologist for follow-up. Prescriptions: No Action PreserVision AREDS-2 [id number]-mg Capsule 1 cap PO DAILY RF: 0 ondansetron 8 mg Tablet,Disintegrating 8 mg PO Q8H PRN (Reason: Nausea) Qty: 30 RF: 2 prochlorperazine maleate [Compazine] 10 mg Tablet 10 mg PO Q6H PRN (Reason: Nausea) Qty: 30 RF: 2 hydroxyzine pamoate [Vistaril] 25 mg capsule 50 mg PO Q6H PRN (Reason: nausea and vomiting) Qty: 14 RF: 0 Referrals: Lashon Murguia MD [Primary Care Provider] -
[2019-02-18] MEDS: LIDOCAINE 2% (UROJET) 5 ML GEL TOP (13:48)
--- NOTE | 2019-02-18 14:34 | PC.NURSE ---
Soap suds enema administered. Patient tolerated fairly. Large amount of stool appears to have moved lower towards rectum but patient unable to pass. Patient reports significant cramps with attempts to pass stool. Provider aware
[2019-02-18 16:53] VITALS: BP 168/70; PULSE 66; RESP 12; O2SAT 99
== END 2019-02-18 16:53 | disposition home or self-care (01) ==
PROVIDERS: Emergency Provider Emergency Medicine; PCP Internal Medicine
DX: K59.00 Constipation, unspecified (principal)
CPT/HCPCS: 36592; 74177; 80048; 96523; 99283; Q9967

== ENCOUNTER → 2019-05-17 11:17 | Outpatient (CLI) | payer MEDICARE, OTHER, SELFPAY ==
[2019-05-17 14:00] LABS: Blood Urea Nitrogen 26 mg/dL (9-20); Estimated Glomerular Filt Rate > 60.0 mL/min (>60)
== END ==
PROVIDERS: PCP Internal Medicine; Visit Provider Radiology Radiation Oncology
DX: C10.9 Malignant neoplasm of oropharynx, unspecified (principal); C01 Malignant neoplasm of base of tongue
CPT/HCPCS: 36415; 82565; 84520

== ENCOUNTER → 2019-05-24 10:04 | Outpatient (CLI) | payer MEDICARE, OTHER, SELFPAY ==
--- NOTE | 2019-05-24 10:27 | DI.CT.S_ITS ---
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 Additional oblique axial 3.0 mm sections acquired through the pharynx. 3 mm thick coronal and sagittal reformats were generated. For radiation dose reduction, the following was used: automated exposure control. COMPARISON: [facility], [place], PET NECK TO MID THIGH, 12/11/2018, 9:38. [facility], CT, CT SOFT TISSUE NECK WITH CONTRAST, 12/31/2018, 15:01. [facility], MR, MR NECK WITH/WITHOUT CONTRAST, 12/31/2018, 15:22. FINDINGS: Image quality: Excellent. Lymph nodes: There is resolution of left cervical lymphadenopathy. Enlarged left cervical lymph nodes seen on last exam are no longer visualized. A couple of residual normal size left level II cervical lymph nodes are present measuring 5 mm and 7 mm, respectively; previously measuring 2.0 x 3.2 cm and 2.9 x 2.5 cm on 12/31/2018. A a 5 mm left supraclavicular lymph node is identified which previously measured 2.1 x 2.6 cm. A 6 x 9 right level II cervical lymph node appears unchanged in size. Vessels: Visualized vasculature appears patent. Neck spaces: The mass involving the left base and vallecula has significantly decreased in size and poorly delineated. There is soft tissue fullness in the same area. The oropharynx, nasopharynx, and pharynx demonstrate no mucosal lesions. The vocal cords, false vocal cords, pyriform sinuses, epiglottis, vallecula, and tongue base all appear normal. Extramucosal spaces appear unremarkable. Glands: The parotid and submandibular glands appear normal. Thyroid gland is normal. Miscellaneous: Visualized brain and orbits appear normal. Lung apices appear clear. Mild emphysema. Superficial soft tissues appear normal. Bones: No suspicious bony lesions. There are mucus retention cyst in right maxillary sinus. Visualized sinuses and mastoids appear unremarkable. Degenerative changes are noted in cervical spine. IMPRESSION: 1. The mass involving the left base and vallecula has significantly decreased in size and is no longer well-seen. There is soft tissue fullness in the same area. Recommend correlation with findings on direct visualization. 2. Interval resolution of left cervical lymphadenopathy. Small normal-sized residual left cervical and supraclavicular lymph nodes are noted. 3. Rright maxillary sinus disease. Dictated by: Blanca Simental M.D. on 05/24/2019 at 12:19 Approved by: Blanca Simental M.D. on 05/24/2019 at 12:48
== END ==
PROVIDERS: PCP Internal Medicine; Visit Provider Radiology Radiation Oncology
DX: C01 Malignant neoplasm of base of tongue (principal); J32.0 Chronic maxillary sinusitis
CPT/HCPCS: 70491; Q9967

== ENCOUNTER → 2020-01-28 14:39 | Outpatient (CLI) | payer MEDICARE, OTHER, SELFPAY ==
--- NOTE | 2020-01-28 14:46 | DI.CT.S_ITS ---
PROCEDURE: CT SOFT TISSUE NECK W CON INDICATIONS: Malignant neoplasm of oropharynx, unspecified TECHNIQUE: After the administration of intravenous contrast, 3.0 mm axial sections acquired from the sella to the aortic arch. Additional oblique axial 3.0 mm sections acquired through the pharynx. 3 mm thick coronal and sagittal reformats were generated. For radiation dose reduction, the following was used: automated exposure control. COMPARISON: [facility], [place], PET NECK TO MID THIGH, 12/11/2018, 9:38. [facility], CT, CT SOFT TISSUE NECK WO CON, 11/20/2018, 10:22. [facility], CT, CT SOFT TISSUE NECK W CON, 05/24/2019, 10:28. [facility], MR, MR NECK WITH/WITHOUT CONTRAST, 12/31/2018, 15:22. [facility], CT, CT SOFT TISSUE NECK WITH CONTRAST, 12/31/2018, 15:01. FINDINGS: Image quality: Excellent. Lymph nodes: No enlarged lymph nodes seen throughout the neck. Vessels: Visualized vasculature appears patent. Neck spaces: The oropharynx, nasopharynx, and pharynx demonstrate no mucosal lesions. The vocal cords, false vocal cords, pyriform sinuses, epiglottis, vallecula, and tongue base all appear normal. Extramucosal spaces appear unremarkable. Glands: The parotid and submandibular glands appear normal. Thyroid gland is normal. Miscellaneous: Visualized brain and orbits appear normal. Lung apices appear clear. Superficial soft tissues appear normal. Bones: No suspicious bony lesions. Mucosal thickening noted in the floor the right maxillary sinus. The mastoids appear unremarkable. IMPRESSION: 1. Stable examination compared to May 24, 2019 with no evidence of residual or recurrence left tongue base carcinoma. 2. No lymphadenopathy based on size criteria. 3. Right maxillary sinus mucosal thickening. Dictated by: Leatha Rob MD, PhD on 01/28/2020 at 16:39 Approved by: Leatha Rob MD, PhD on 01/28/2020 at 16:45
== END ==
PROVIDERS: PCP Family Medicine; Referring Provider Family Medicine; Visit Provider Internal Medicine Hematology & Oncology
DX: C10.9 Malignant neoplasm of oropharynx, unspecified (principal); J32.0 Chronic maxillary sinusitis
CPT/HCPCS: 70491; Q9967

== ENCOUNTER → 2020-07-08 10:16 | Outpatient (CLI) | payer MEDICARE, OTHER, SELFPAY ==
[2020-07-08 11:44] LABS: COVID19 -Nasal RAPID Negative (Negative)
== END ==
PROVIDERS: PCP Family Medicine; Visit Provider Physician Assistant
DX: Z01.812 Encounter for preprocedural laboratory examination (principal); Z20.822 Contact with and (suspected) exposure to COVID-19
CPT/HCPCS: 87635; C9803

== ENCOUNTER 2020-07-10 09:51 | Day surgery (SDC) | payer MEDICARE, OTHER, SELFPAY ==
[2020-07-05 09:44] VITALS: BMI 23.6
[2020-07-10] VITALS (9 sets, daily range): BP systolic 141–160; BP diastolic 67–82; PULSE 63–74; RESP 10–20; TEMP 36.6–36.8; O2SAT 95–100; BMI 23.6
[2020-07-10] MEDS: LACTATED RINGERS 1,000 ML 42 ML IV ×2 (10:24→10:48)
[2020-07-10] MEDS: ACETAMINOPHEN 325 MG TABLET 975 MG PO (10:34)
[2020-07-10] MEDS: CEFAZOLIN 2 GM/100 ML FROZ.PIGGY IV (13:18)
--- NOTE | 2020-07-10 13:19 | PM.PREOP ---
Pre-operative Note COVID-19 COVID-19 status: Negative Result date/Date tested (Pos, Neg/Pending): 07/07/20 Interval Note History & Physical reviewed/Exam performed by Physician: Yes Changes to H&P: No
--- NOTE | 2020-07-10 13:35 | SUR.OPER ---
Supine on padded OR bed, head on pillow, arms secured on padded arm boards at <90 degrees abduction, legs uncrossed, safety belt at thigh, tape over blanket over lower legs.
[2020-07-10] MEDS: BUPIVACAINE 0.5% (PF) VIAL 30 ML INJ (13:39)
--- NOTE | 2020-07-10 15:40 | PM.OP.1 ---
Operative Date/Time/Diagnoses Date of procedure: 07/10/20 Time of procedure: 15:41 Pre-op diagnosis: Bilateral inguinal hernias. Reducible. Post-op diagnosis: same (Right-sided direct. Left side both direct and indirect.) Procedure & Clinicians Procedure: Repair of plug and patch technique. Right side with small plug left side with medium plug Same procedure as scheduled: Yes Indications: Symptomatic hernia. Surgeon: Kai Pineda Click Yes if Unassisted: Yes Anesthesia Type: General Operative Notes Findings: See above Closure Type: primary Specimen(s): none sent Prosthetic devices, grafts, tissues, transplants, or devices: Mesh Estimated Blood Loss (mL): 150 Procedure in detail: The patient is placed supine on the operating room table underwent general LMA anesthesia. He was prepped and draped in usual fashion. Transverse incision is made in the right lower quadrant after injecting local anesthetic. This carried down level the external oblique. The external oblique was opened parallel with its fibers through the external ring. Cord structures were elevated. The floor had fat protruding through it. There was a large amount of fat adjacent to the cord structures in the cord. I opened the cremaster proximally dissected the fat out and ligated it proximally with a 3-0 Vicryl. Stump was allowed to retract. I could identify no indirect sac. I had to repair the floor because the preperitoneal fat was pushing up through and it would be problematic it during the repair. Therefore interrupted sutures were placed from the edge of the inguinal ligament the ileopubic tract to transversalis. These were tied and a relaxing incision made the posterior lamella the anterior rectus sheath. A small plug was placed in the defect created by the lipoma of the cord. It was tacked in place with interrupted Ethibond. A patches placed across the floor and tacked at the pubic tubercle, the posterior lamella the anterior rectus sheaths on the medial cut side. It was also attached at the ilioinguinal ligament and superior and lateral the cord. External oblique was closed a running 3 0 Vicryl. The subQ was closed with interrupted 4-0 Vicryl and skin was closed running 4-0 Vicryl subcuticular stitch. Attention was turned to the other side. A mirror incision was created after injecting local. It was carried down to the level of the external oblique. The external oblique was opened parallel with STEPHON through the external ring. That was protruding actually superior and lateral the cord much like a lipoma and this was removed. The floor had a small amount of fat coming through it near the internal ring and I opened the cremaster proximally. There was an indirect sac that was from surrounding structures to the level the deep epigastric vessels. Was open and had no contents. It was ligated with a pursestring of 2-0 silk which was then tied as a tie as well. The stump was allowed to retract after injecting local below the stye. The preperitoneal fat which had pulled down with the sac was pushed back in the preperitoneal space and a medium plug tacked into place to keep this intact. Was placed in the preperitoneal space and tacked into place with interrupted Ethibond suture. A patch was increased to cross the floor and tacked at the pubic tubercle, the posterior lamella the anterior rectus sheath, the ileal inguinal ligament and superior and lateral the cord. On both sides the opening in the mesh had to be enlarged so as not to constrict the cord structures. The extremity pose running 3-0 Vicryl. The subQ was closed with interrupted 4 Vicryl and skin was closed running 4-0 Vicryl subcuticular stitch. Local anesthetic was infiltrated on both sides and Steri-Strips were applied. Dressing was applied the patient was awakened and taken to recovery area in good condition. There were no apparent complications. Complications: none Post-operative Condition: stable Disposition: PACU
[2020-07-10] MEDS: OXYCODONE IR 5 MG TABLET PO ×2 (15:43→16:18)
[2020-07-10] MEDS: KETOROLAC 30 MG/ML VIAL IV (16:02)
--- NOTE | 2020-07-10 16:52 | SUR.PHASEII ---
1630-Pt up and ambulating gait steady, getting dressed on his own, all dc instructions previously given and pt verbalizes understanding. 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
== END 2020-07-10 16:40 | disposition home or self-care (01) ==
PROVIDERS: PCP Family Medicine; Referring Provider Specialist; Visit Provider Specialist
PROC: (CPT 49505; principal; 2020-07-10 11:15)
DX: K40.20 Bilateral inguinal hernia, without obstruction or gangrene, not specified as recurrent (principal)
CPT/HCPCS: 49505; C1781; J0690; J1100; J1885; J2250; J2405; J2704; J3010

== ENCOUNTER 2024-02-05 09:27 | Day surgery (SDC) | payer MEDICARE, SELFPAY ==
--- NOTE | 2024-02-05 | PATH_ITS ---
[facility] Accession Number: [id number] No. of containers..01 Tissue . 01 Material submitted: . colon - ASCENDING COLON . 01 Diagnosis: Colon, ascending, biopsy: Tubular adenoma, inflamed. TXN 02/10/2024 1102 Local . 01 Electronically signed: . Ellen Coffman MD, Pathologist NPI- [id number] . 01 Gross description: . Received in formalin with two patient identifiers and ascending colon, is a single spain soft tissue fragment, 0.8 cm in greatest dimension. Submitted in A1. ([id number]) /MRV 02/06/2024 1515 Local . 01 Pathologist provided ICD-10: D12.6 . 01 CPT . 163390 Specimen Comment: A courtesy copy of this report has been sent to [phone] Performed at: [address] [id number] MD Bereket Carlos MD Phone: [phone]
[2024-02-05] MEDS: LACTATED RINGERS 1,000 ML 42 ML IV (09:40)
[2024-02-05 09:48] VITALS: BP 152/78; PULSE 71; RESP 18; TEMP 36.4; O2SAT 99
[2024-02-05 10:02] VITALS: BMI 22.0
--- NOTE | 2024-02-05 10:12 | P.HP_ITS ---
History of Present Illness History of Present Illness Date Patient Seen: 02/05/24 Time Patient Seen: 10:12 Chief complaint: Screening Colonoscopy Narrative: Matthew is a 73-year-old man who is here for colonoscopy. His last colonoscopy was in [address] Pineda. Two small polyps were removed at that time. The recommendation was for a follow up colonoscopy after 5 years. He was subsequently diagnosed with head and neck cancer and has completed his treatment . 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 Surgical History History of colonoscopy History of vasectomy (1985) Hx of tonsillectomy S/P percutaneous endoscopic gastrostomy (PEG) tube placement (~02/12/19) Family History Mother Bladder cancer Social History marital status: household members: spouse occupational status: previously employed Smoking Status: Current every day smoker alcohol intake: current substance use type: marijuana Meds Home Medications and Allergies Home Medications Medication Instructions Recorded Confirmed Type vit C 250 mg-vit E 90 mg-zinc 40 1 cap PO DAILY 12/30/18 02/05/24 History mg-copper 1 [id number] capsule (PreserVision AREDS-2) Allergies Allergy/AdvReac Type Severity Reaction Status Date / Time No Known Drug Allergies Allergy Verified 07/25/20 13:52 Exam Vital Signs (past 8 hours): - 02/05/24 09:48 Temperature 97.6 F Pulse Rate 71 Respiratory Rate 18 Blood Pressure 152/78 H Pulse Oximetry 99 Oxygen Delivery Method Room Air Oxygen Delivery Method Room Air Const General: No acute distress Resp Effort & Inspection: normal respiratory effort Assessment & Plan Assessment and plan (1) History of colon polyps: Status: Acute Plan We reviewed the risks and benefits of colonoscopy for history of polyps and he would like to proceed. Time-Based Coding :: [TOTAL MINUTES] spent with patient and on the chart (including review of chart, obtaining history, exam, reviewing outside data, placing orders, documenting exam and treatment plan, and counseling patient) on [DATE].
[2024-02-05 10:36] VITALS: BP 126/71; PULSE 62; RESP 12; TEMP 36.4; O2SAT 98
[2024-02-05 10:41] VITALS: BP 127/71; PULSE 67; RESP 14; O2SAT 94
[2024-02-05 10:46] VITALS: BP 121/68; PULSE 60; RESP 12; O2SAT 98
[2024-02-05 10:47] VITALS: BP 139/75; PULSE 59; RESP 12; O2SAT 97
--- NOTE | 2024-02-05 11:09 | PM.OP.COLON ---
Operative Date/Time/Diagnoses Date of procedure: 02/05/24 Time of procedure: 11:09 Pre-op diagnosis: History of polyps Post-op diagnosis: same Procedure & Clinicians Study performed: Colonoscopy Same procedure as scheduled: Yes Surgeon: Dewey Lares Procedure Notes Procedure in detail: Surgeon: Dewey Lares MD Anesthesia: Juliet Hinton CRNA Procedure: The patient was brought to the endoscopy suite, placed in left lateral decubitus position. The patient was connected to monitoring devices. A time-out was performed. Sedation was administered. Once the patient was adequately sedated, a digital rectal exam was performed and was normal. The scope was then inserted and advanced to the cecum where the appendiceal orifice was identified and photographed. The scope was then slowly withdrawn over greater than 6 minutes. The mucosa was thoroughly inspected. There was a 5 mm polyp in the ascending colon removed with a cold snare. There was moderate sigmoid colon diverticulosis. The scope was retroflexed in the rectum. No other abnormalities were noted. The scope was straightened and removed. The patient was awakened and brought to recovery. Scope withdrawal time: 10 minutes Sedation time: 14 minutes EBL: 5 mL Findings: Small polyp in the ascending colon and moderate sigmoid colon diverticulosis Post-procedure Disposition: PACU
== END 2024-02-05 10:56 | disposition home or self-care (01) ==
PROVIDERS: PCP Family Medicine; Referring Provider Surgery; Visit Provider Surgery
PROC: 0DJD8ZZ Inspection of Lower Intestinal Tract, Via Natural or Artificial Opening Endoscopic (ICD-10-PCS; CPT 45378; principal; 2024-02-05 10:30)
DX: Z12.11 Encounter for screening for malignant neoplasm of colon (principal); Z86.010 Personal history of colon polyps; K57.30 Diverticulosis of large intestine without perforation or abscess without bleeding; D12.2 Benign neoplasm of ascending colon
CPT/HCPCS: 45385

== ENCOUNTER → 2025-01-27 11:26 | Outpatient (CLI) | payer MEDICARE, SELFPAY ==
[2025-01-27 12:29] LABS: Add Manual Diff / Slide Review NO; Hematocrit 45.0 % (41-53); Hemoglobin 15.6 g/dL (13.5-17.5); Lymphocytes Absolute Auto 1100 /uL (1100-4500); Mean Corpuscular HGB Conc 34.7 % (30-36); Mean Corpuscular Hemoglobin 32.4 PG (26-34); Mean Corpuscular Volume 93.3 fL (80-100); Platelet Count 213 X10^3/uL (150-400)
[2025-01-27 13:18] LABS: Alanine Aminotransferase 38 IU/L (<50); Albumin 4.5 g/dL (3.5-5.0); Albumin Globulin Ratio 1.3 (1.0-2.8); Alkaline Phosphatase 112 U/L (38-126); Blood Urea Nitrogen 20 mg/dL (9-20); Calcium 9.6 mg/dL (8.4-10.2); Carbon Dioxide 26 mmol/L (22-32); Chloride 103 mmol/L (98-107); Estimated Glomerular Filt Rate > 60 mL/min (>60); Globulin 3.6 g/dL (1.7-4.1); Glucose 148 mg/dL (70-99); HEMOLYSIS < 15 (0-50); Potassium 4.3 mmol/L (3.4-5.1); Sodium 137 mmol/L (137-145); Total Protein 8.1 g/dL (6.3-8.2)
[2025-01-29 00:11] LABS: ANA Screen, IFA Negative (.)
== END ==
PROVIDERS: PCP Family Medicine
DX: R21 Rash and other nonspecific skin eruption (principal)
CPT/HCPCS: 36415; 80053; 85025; 85651; 86038; 86140; 86788; 86789

== ENCOUNTER → 2025-02-05 11:19 | Outpatient (CLI) | payer MEDICARE, SELFPAY | PROVIDERS: PCP Family Medicine | DX: L30.9 Dermatitis, unspecified (principal) | CPT/HCPCS: 36415; 83516; 86235 ==

== ENCOUNTER → 2025-04-23 11:22 | Outpatient (CLI) | payer MEDICARE, SELFPAY ==
[2025-04-23 12:17] LABS: Add Manual Diff / Slide Review NO; Hematocrit 42.4 % (41-53); Hemoglobin 14.3 g/dL (13.5-17.5); Lymphocytes Absolute Auto 1100 /uL (1100-4500); Mean Corpuscular HGB Conc 33.7 % (30-36); Mean Corpuscular Hemoglobin 30.9 PG (26-34); Mean Corpuscular Volume 91.6 fL (80-100); Platelet Count 229 X10^3/uL (150-400)
== END ==
PROVIDERS: PCP Family Medicine
DX: L93.1 Subacute cutaneous lupus erythematosus (principal); Z79.899 Other long term (current) drug therapy
CPT/HCPCS: 36415; 85025